=== PATIENT | female | born 1935 | race Caucasian/White ===

== ENCOUNTER → 2017-12-26 | Outpatient (CLI) | payer MEDICARE ==
[~2017-12-26] MED LIST: ALBU8.5H5 INH; AMLO5TAB2 PO; CETI-158 PO; FLUT1AER INH; FLUT1DIS IH; FURO20TA3 PO; GLIM2TAB2 PO; IPRA3AMP INH; LISI-167 PO; METO25TA35 PO; NAPR220T77 PO; OMEP-110 PO; POLY17PO3 PO; POTA10TA6 PO; PREG50CA PO; SITA1TAB5 PO; SITA1TBM7 PO; TIOT18CA INH; [UNRECOGNIZED DRUG - CODE] PO
== END ==
LOC: CFH 11:49
PROVIDERS: ATTEND Internal Medicine
DX: J43.9 Emphysema, unspecified (principal); N20.0 Calculus of kidney
CPT/HCPCS: 71250

== ENCOUNTER → 2020-09-20 | Outpatient (CLI) | payer MEDICARE, MEDICAID ==
[~2020-09-20] MED LIST changes: +AMLO-150 PO; -AMLO5TAB2 PO; -GLIM2TAB2 PO; +GLIM2TAB7 PO; -IPRA3AMP INH; +IPRA3AMP30 INH; +POLY17PO29 PO; -POLY17PO3 PO
== END | disposition home or self-care (01) ==
LOC: CVU 14:06
PROVIDERS: ATTEND Internal Medicine Cardiovascular Disease
DX: I65.23 Occlusion and stenosis of bilateral carotid arteries (principal); I25.10 Atherosclerotic heart disease of native coronary artery without angina pectoris
CPT/HCPCS: 93880

== ENCOUNTER → 2020-10-04 | Outpatient (CLI) | payer MEDICARE, MEDICAID ==
[~2020-10-04] MED LIST changes: +REGADENOSON 0.4 MG/5 ML SYRINGE ONE
== END | disposition home or self-care (01) ==
LOC: CFH 08:09
PROVIDERS: ATTEND Internal Medicine Cardiovascular Disease
DX: I21.09 ST elevation (STEMI) myocardial infarction involving other coronary artery of anterior wall (principal); I25.10 Atherosclerotic heart disease of native coronary artery without angina pectoris; G45.9 Transient cerebral ischemic attack, unspecified
CPT/HCPCS: 78452; 93017; A9502; J2785